=== PATIENT | female | born 2000 ===

== ENCOUNTER 2021-08-08 07:35 | Inpatient (IN) | payer MEDICAID ==
[~2021-08-08] VITALS: Ht 162.6 cm; Wt 131.4 kg
[2021-08-09] VITALS (41 sets, daily range): BP systolic 98–165; BP diastolic 57–100; PULSE 63–130; TEMP 98–99
--- NOTE | 2021-08-09 06:15 | NUR ---
0615-Patient to LR4 for induction of labor. Patient made aware we are planning to evaluate FHR and labor check patient and may have to put her induction on hold at this time. 0637-Patient placed on EFM. Maternal BP 137/89. SVE /-3. Dr. Houser updated. Orders to obtain CBC,CMP, UA.
[2021-08-09 07:28] LABS: COLLECTION METHOD CLEAN CATCH
[2021-08-09 07:31] LABS: BASO % 0.2 % (0.0-2.0); EOS # 0.1 K/mm3 (0.0-0.7); EOS % 1.2 % (0.0-4.0); GRAN # 7.8 K/mm3 (1.4-6.5); GRAN % 70.2 % (42.2-75.2); HEMOGLOBIN 11.4 g/dl (12.5-16.0); LYMPH # 2.2 K/mm3 (1.2-3.4); LYMPH % 19.4 % (20.0-51.0); MEAN CELL VOLUME 82 fl (80.0-100.0); MEAN CORPUSCULAR HEMOGLOBIN 26 pg (27-31); MEAN CORPUSCULAR HGB CONC 32 g/dl (33.0-37.0); MEAN PLATELET VOLUME 11.1 fl (7.4-10.4); MONO % 8.6 % (1.7-9.3); PLATELET COUNT 299 K/mm3 (130-400); RED BLOOD COUNT 4.35 M/mm3 (4.10-5.30); REDCELL DISTRIBUTION WIDTH-CV 14.8 % (11.5-14.5)
[2021-08-09 07:33] LABS: HEMATOCRIT 35.6 % (37.0-47.0)
[2021-08-09 07:35] LABS: MUCOUS Present (NOT PRESENT); PH 5 (5-8); SQUAMOUS EPITHELIAL 0-2 /hpf (0-10); URINE APPEARANCE Clear (CLEAR/HAZY); URINE BACTERIA None Seen /hpf (NONE SEEN); URINE BILIRUBIN Negative (NEGATIVE); URINE BLOOD 1+ (NEGATIVE); URINE COLOR Yellow (YELLOW); URINE GLUCOSE Negative (NEGATIVE); URINE KETONE Negative (NEGATIVE); URINE LEUKOCYTE ESTERASE Negative (NEGATIVE); URINE NITRATE Negative (NEGATIVE); URINE PROTEIN(semi-quant) Negative (NEGATIVE); URINE RBC 0-2 /hpf (0-2); URINE UROBILINOGEN Negative (NEGATIVE); URINE WBC 0-2 /hpf (0-2)
[2021-08-09 07:50] LABS: ALBUMIN 2.7 gm/dL (3.5-5.0); BILIRUBIN,TOTAL 0.4 mg/dL (0.2-1.2); CALCIUM 8.5 mg/dL (8.4-10.2); CREATININE, serum 0.61 mg/dL (0.57-1.11); POTASSIUM 4.1 mmol/L (3.5-4.5); TOTAL PROTEIN 6.5 gm/dL (6.2-8.1)
--- NOTE | 2021-08-09 08:40 | NUR ---
0840-Dr. Cook at bedside with bedside sono to asssit with placement of EFM an confirm presentation.
--- NOTE | 2021-08-09 09:55 | NUR ---
0955-Patient sits up to bedside, RN to room due to incomplete tracing of FHR. Adjsuts EFM frewquently. Difficulty tracing FHR due to position and habitus.
[2021-08-09] MEDS ORDERED: LEXAPRO 10MG10 MG PO (10:00)
[2021-08-09] MEDS ORDERED: PRENATAL (10:01)
--- NOTE | 2021-08-09 10:10 | NUR ---
1010-Dr. Houser on unit. Reviews FHR monitor. Orders to admit patient and give antibiotics and start pitocin when able. MD reviews plan of care with patient. Ancef given, See EMAR.
--- NOTE | 2021-08-09 11:15 | NUR ---
1115-Patient up to bedside, difficulty tracing contractions due to position changes and frequent adjustment of EFM.
--- NOTE | 2021-08-09 12:00 | NUR ---
1200-Patient sitting upright on bedside reviewing consents. Difficulty tracing FHR due to position. EFM adjusted frequently.
--- NOTE | 2021-08-09 12:30 | NUR ---
1230-Patient off EFM to bathroom. 1240-Returns to bedside sitting upright in bed. [place] not tracing contractions. Readjusting EFM. [place] mild to moderate irregular contractions. Patient denies discomfort or knowledge of contractions.
--- NOTE | 2021-08-09 13:20 | NUR ---
1320-Continued difficulty tracing FHR and Contractions via EFM. Due to size and postioning.
--- NOTE | 2021-08-09 15:00 | NUR ---
[id number]-[place] Frequently changing from sitting to standing, ambulated to bathroom. at [id number]. Patient requests epidural and COscarRESIDENT CARE AIDE notifed at 1510. Due to habitus and position changes during this time FHR tracing is not continous and contractions are difficult to trace via toco.
--- NOTE | 2021-08-09 15:45 | NUR ---
1545-Patient sitting upright for epidural placement. 1557-SS 1559 Test dose. VSS. Patient tolerated procedure well. Repositioned WR. Updated on safety and plan of care.
--- NOTE | 2021-08-09 17:11 | NUR ---
171-Patient turned to back for loyd placement from . Upon laying on back patient became light headed and felt as if she was going to pass out. Patient BP 98/57, HR 63. IVF bolus tarted. FHR difficult to trace. RN frequently attempting to trace. Audible FHR decels. 172-10mg ephedrine given, see EMAR. 172-Dr. Houser notifed of FHR decels and requested to unit. MD in route already to unit. Patient turned LL and FHR tracing 125bpm with late decels prolonged down to 70's Difficulty to trace return to baseline. 173-Dr. Houser on unit. SVE /3. Pitocin turned off and SROM by MD M[place] fluid noted. FSE placed by MD. Patient RL. MD remains at bedside discussing plan of care and monitoring FHR. 1749-IUPC and Loyd placed by MD. 1810-SVE by RN, 3, FSE remains in place but near cervix and being disturned and tracing is interrupted. Retuned to EFM tracing per MD at bedside. 1814-Reported off to oncoming nurse.
--- NOTE | 2021-08-09 20:48 | NUR ---
Dr Houser into room. Pt prepped for delivery. [address] Houser.
--- NOTE | 2021-08-09 21:00 | NUR ---
Placenta delivers spont and intact. Pitocin gtt to bolus rate.
--- NOTE | 2021-08-09 21:20 | NUR ---
Perineal repair complete. Pericare done, ice pack to perineum, bed together.
--- NOTE | 2021-08-09 23:00 | NUR ---
up to bathroom with slightly unsteady gait. Voids good amount, performs own pericare. Back to bed without difficulty. Pt reports "I have a little bit of a head and neck ache" to room via wheelchair.
[2021-08-10 04:45] VITALS: BP 134/79; PULSE 75; TEMP 97.6
[2021-08-10 06:04] LABS: HEMATOCRIT 30.6 % (37.0-47.0); HEMOGLOBIN 9.8 g/dl (12.5-16.0)
[2021-08-10] MEDS ORDERED: IBU600 MG PO (08:30)
[2021-08-10 08:50] VITALS: BP 141/85; PULSE 90; TEMP 97.4
--- NOTE | 2021-08-10 09:08 | NUR ---
Initial visit attempt; Patient sleeping, Food General Manager left card of congratulations and God's blessings for the of her daughter. Food General Manager thanked family for choosing [facility].
[2021-08-10 12:20] VITALS: BP 116/63; PULSE 83; TEMP 97.9
--- NOTE | 2021-08-10 12:31 | NUR ---
1145THIS RN NOTIFIED BY Ziyad PATEL RN THAT PATIENT REPORTS INCREASED HEADACHE AND THAT MEDICINE GIVEN IS NOT WORKING. 1150THIS RN AT BEDSIDE TO EVALUATE. HEAD OF BED LAID BACK SO PATIENT WAS PLACED IN SUPINE POSITION. PATIENT STATES, "OH WOW, THAT'S ALREADY ALOT BETTER. IT IS STILL ALITTLE DULL BUT NOTHING LIKE IT WAS." THIS RN SPEAKING WITH Niurka COTO CRNA WITH Ziyad PATEL RN ABOUT HEADACHE. Niurka COTO CRNA GOING TO SPEAK TO PATIENT. 1200C. TRAVIS COTO GIVES THIS RN ORDERS TO RESTART IV AND DISCUSSED PLAN OF CARE WITH PATIENT AND THIS RN. [id number] PLACED IN LEFT FOREARM. PATIENT TOLERATED WELL. Niurka COTO CRNA NOTIFIED.
[2021-08-10 16:35] VITALS: BP 128/60; PULSE 81; TEMP 97.7
[2021-08-10 20:30] VITALS: BP 142/83; PULSE 103; TEMP 98.5
[2021-08-11 08:35] VITALS: BP 144/94; PULSE 80; TEMP 98.2
[2021-08-11 12:10] VITALS: BP 141/80; PULSE 79
--- NOTE | 2021-08-11 13:10 | NUR ---
1300- This RN to bedside to do discharge teaching. Pt complaining of worsening headache, lots of pressure at base of head, significantly worse when sitting up. This RN discusses desire to consult SPICE ROOM WORKER prior to discharging home, Pt agrees to this. 1305- TRAVIS Marin at [facility], updated on Pt status. To Pt room to evaluate. Recommends blood patch, risks and benefits discussed. Pt agrees to procedure. 1330- Pt ambulates to LR6 for procedure. Her mother with her. Consent signed and witnessed. See anesthesia record. Pt tolerated procedure well. Pt semi-fowlers on back for 30mins per SPICE ROOM WORKER VO. VSS. 1425- Pt verbalizes improvement in headache, denies throbbing pressure. Pt ambulates to PP room independenlty with RN standby, steady gate noted.
== END 2021-08-11 14:50 | disposition home or self-care (01) | DRG 807 ==
LOC: OB 08-09 06:04 → LDR 08-09 06:04 → OB 08-10
PROVIDERS: ADMIT Obstetrics & Gynecology
PROC: 10E0XZZ Delivery of Products of Conception, External Approach (ICD-10-PCS; principal; 2021-08-09)
PROC: 0KQM0ZZ Repair Perineum Muscle, Open Approach (ICD-10-PCS; 2021-08-09)
PROC: 10907ZC Drainage of Amniotic Fluid, Therapeutic from Products of Conception, Via Natural or Artificial Opening (ICD-10-PCS; 2021-08-09)
PROC: 3E033VJ Introduction of Other Hormone into Peripheral Vein, Percutaneous Approach (ICD-10-PCS; 2021-08-09)
DX: O48.0 Post-term pregnancy (principal); Z37.0 Single live birth; O99.214 Obesity complicating childbirth; O99.02 Anemia complicating childbirth; D64.9 Anemia, unspecified; O99.824 Streptococcus B carrier state complicating childbirth; O13.4 Gestational [pregnancy-induced] hypertension without significant proteinuria, complicating childbirth; O89.4 Spinal and epidural anesthesia-induced headache during the puerperium; O99.344 Other mental disorders complicating childbirth; F41.3 Other mixed anxiety disorders; F42.9 Obsessive-compulsive disorder, unspecified; F32.A Depression, unspecified; O77.0 Labor and delivery complicated by meconium in amniotic fluid; O70.1 Second degree perineal laceration during delivery; Z3A.41 41 weeks gestation of pregnancy
CPT/HCPCS: J0461; J0690; J2590; J7040; J7120